=== PATIENT | male | born 1995 | race African-American/Black ===

== ENCOUNTER 2018-01-01 04:54 | Emergency (ER) | payer OTHER ==
[2018-01-01] MEDS: 0.9 % SODIUM CHLORIDE 1,000 ML IV ONE (05:30)
[2018-01-01] MEDS: methylPREDNISolone SOD SUCC 125 MG/2 ML VIAL IVP ONE (05:31)
[2018-01-01 05:37] LABS: BASOPHILS % 0.6 (0.0-1.5); EOSINOPHILS % 3.4 % (0.0-6.8); MEAN CORPUSCULAR HEMOGLOBIN 28.8 pg (28.0-34.0); MEAN CORPUSCULAR VOLUME 83.5 fl (80.0-100.0); NEUTROPHILS # 3.3 # k/uL (1.4-7.7)
[2018-01-01 06:01] LABS: eGFR (African) > 60; eGFR (Non-African) > 60
--- NOTE | 2018-01-01 06:12 | ED Physician Documentation ---
General Adult - HISTORIAN Historian: patient - HPI Stated Complaint: Possible allergic reaction Chief Complaint: General Adult Onset: hours Timing: still present Severity: moderate Further Comments: yes (Pt is a 22 yo male who thinks he has had a possible allergic reaction to OTC Hedy. Pt is a diesel truck mechanic and about 1/2 hr after taking hedy, he felt tightness in his throat. Pt did not become wheezy of sob. No previous similar episode. Pt has hx asthma, but did not become wheezy today.) - ROS CONST: no problems EYES/ENT: other (throat tightening) CVS/RESP: none GI/: none MS/SKIN/LYMPH: none - PAST HX Past History: none, asthma Other History: none Allergies/Adverse Reactions: Allergies Allergy/AdvReac Type Severity Reaction Status Date / Time amoxicillin Allergy Intermediate Verified 01/01/18 05:07 Home Medications: Ambulatory Orders Medication Instructions Recorded Albuterol Sulfate [ProAir 1 puff INH DAILY 01/01/18 [facility]Click] - SOCIAL HX Smoking History: non-smoker - FAMILY HX Family History: No - VITAL SIGNS Vital Signs: Vital Signs Temp Pulse Resp BP Pulse Ox 97.6 F 84 18 131/86 98 01/01/18 04:55 01/01/18 04:55 01/01/18 04:55 01/01/18 04:55 01/01/18 04:55 - REVIEWED ASSESSMENTS Nursing Assessment Reviewed: Yes Vitals Reviewed: Yes Progress - Progress Progress: 1 L IVF Solu-medrol 125 mg IV Rx Prednisone 50 mg. Take one tablet by mouth one time daily for 4 days. Start on 01-02-18. ED Results Lab/Radiology - Lab Results Lab Results: Lab Results 01/01/18 01/01/18 05:31 05:31 WBC 5.90 K/ul K/ul (4.00-12.00) RBC 4.51 M/ul M/ul (3.90-5.20) Hgb 13.0 g/dL g/dL (12.0-18.0) Hct 37.7 % % (37.0-53.0) MCV 83.5 fl fl (80.0-100.0) MCH 28.8 pg pg (28.0-34.0) MCHC 34.6 g/dL g/dL (30.0-36.0) RDW 13.0 % % (11.3-14.3) Plt Count 433 K/mm3 H K/mm3 (130-400) Neut % (Auto) 55.8 % % (39.0-79.0) Lymph % (Auto) 31.4 % % (16.0-50.0) [place] % (Auto) 7.0 % % (0.0-11.0) Eos % (Auto) 3.4 % % (0.0-6.8) Baso % (Auto) 0.6 (0.0-1.5) Neut # (Auto) 3.3 # k/uL # k/uL (1.4-7.7) Lymph # (Auto) 1.9 # k/uL # k/uL (0.6-4.0) [place] # (Auto) 0.4 # k/uL # k/uL (0.0-0.9) Eos # (Auto) 0.2 # k/uL # k/uL (0.0-0.6) Baso # (Auto) 0.0 # k/uL # k/uL (0.0-0.5) Reactive Lymphs % 1.8 % % (0.0-5.0) Reactive Lymphs # 0.1 # k/uL # k/uL (0.0-0.8) Sodium 138 mmol/L mmol/L (136-145) Potassium 3.9 mmol/L mmol/L (3.5-5.1) Chloride 98 mmol/L mmol/L (98-107) Carbon Dioxide 31 mmol/L H mmol/L (22-30) BUN 13 mg/dL mg/dL (9-20) Creatinine 1.00 mg/dL mg/dL (0.66-1.25) Estimated Creat Clear 190 Est GFR ( Amer) > 60 (60 - ) Est GFR (Non-Af Amer) > 60 (60 - ) Glucose 91 mg/dL mg/dL (74-106) Calcium 9.2 mg/dL mg/dL (8.4-10.2) Total Bilirubin 0.7 mg/dL mg/dL (0.2-1.3) AST 20 U/L U/L (15-46) ALT 31 U/L U/L (13-69) Alkaline Phosphatase 42 U/L U/L (38-126) Total Protein 7.4 g/dL g/dL (6.3-8.2) Albumin 3.9 g/dL g/dL (3.5-5.0) - Orders Orders: ED Orders Category Date Time Status Place IV Lock 1T Care 01/01/18 05:14 Active CBC/PLATELET/DIFF Routine Lab 01/01/18 05:31 Completed CMP [CMP] Routine Lab 01/01/18 05:31 Completed 0.9 % Sodium Chloride [Normal Saline] 1,000 ml Med 01/01/18 05:14 Active IV Q1H methylPREDNISolone SOD SUCC [Solu-MEDROL] Med 01/01/18 05:14 Discontinued 125 mg IVP NOW ONE General Adult Physical Exam - PHYSICAL EXAM GENERAL APPEARANCE: mild distress EENT: pharynx normal NECK: normal inspection, supple RESPIRATORY: no resp distress, chest non-tender, breath sounds normal CVS: reg rate & rhythm, heart sounds normal ABDOMEN: soft, no organomegaly, normal bowel sounds BACK: normal inspection SKIN: warm/dry, normal color EXTREMITIES: non-tender, normal range of motion, no evidence of injury, no edema NEURO: oriented X3, motor nml, sensation nml Discharge Clincal Impression: possible allergic reaction to medication Referrals: Primary Doctor,No [Primary Care Provider] - Condition: Good Disposition: 01 HOME, SELF-CARE Decision to Admit: NO Decision Time: 06:14
[2018-01-01 07:39] VITALS: BP 111/56
== END 2018-01-01 07:35 | disposition home or self-care (01) ==
LOC: ED 04:54
DX: R06.02 Shortness of breath (principal)
CPT/HCPCS: 80053; 85025; J2930; J7030; 96365; 96375; 99282; S1016